=== PATIENT | male | born 1975 | race African-American/Black ===

== ENCOUNTER 2021-02-03 22:42 | Emergency (ER) | payer SELFPAY ==
[~2021-02-03] VITALS: Ht 177.8 cm; Wt 80.0 kg
[2021-02-03 22:46] VITALS: BP 132/94
--- NOTE | 2021-02-03 22:58 | NUR ---
ADVERTISING INTERNSHIP: PT W BASELINE ATAXIA. REFUSING WHEELCHAIR
--- NOTE | 2021-02-03 23:22 | NUR ---
CORPORATE RECEPTIONIST: PT. TO ROOM FROM LOBBY AT THIS TIME.
== END 2021-02-03 23:37 | disposition home or self-care (01) ==
LOC: ED 23:35
DX: S01.24XA Puncture wound with foreign body of nose, initial encounter (principal); X58.XXXA Exposure to other specified factors, initial encounter; Y93.89 Activity, other specified; Y92.89 Other specified places as the place of occurrence of the external cause; Y99.8 Other external cause status
CPT/HCPCS: 99283